=== PATIENT | female | born 1950 | race Caucasian/White ===

== ENCOUNTER 2016-05-02 13:42 | Emergency (ER) | payer OTHER, MEDICARE ==
[2016-05-02 14:09] VITALS: BP 133/79; PULSE 86; RESP 16; TEMP 98.1; O2SAT 99
--- NOTE | 2016-05-02 14:26 | EDPHY ---
H & P Stated Complaint: Mechanical tripped, R 5th TOE deformity. Time Seen by Provider: 05/02/16 14:15 HPI/ROS: CHIEF COMPLAINT: Toe injury HISTORY OF PRESENT ILLNESS: The patient is a 65-year-old female who comes to the emergency department complaining of right little toe pain. She states that she stubbed it against the threshold of the shower getting out of the shower. This happened just prior to arrival. She denies other injuries. REVIEW OF SYSTEMS: Constitutional: denies: chills, fever, recent illness, recent injury EENTM: denies: blurred vision, double vision, nose congestion Respiratory: denies: cough, shortness of breath Cardiac: denies: chest pain, irregular heart rate, lightheadedness, palpitations Gastrointestinal/Abdominal: denies: abdominal pain, diarrhea, nausea, vomiting, blood streaked stools Genitourinary: denies: dysuria, frequency, hematuria, pain Musculoskeletal: See HPI Skin: denies: lesions, rash, jaundice, bruising Neurological: denies: headache, numbness, paresthesia, tingling, dizziness, weakness Hematologic/Lymphatic: denies: blood clots, easy bleeding, easy bruising Immunologic/allergic: denies: HIV/AIDS, transplant EXAM: GENERAL: Well-appearing, well-nourished and in no acute distress. HEAD: Atraumatic, normocephalic. EYES: Pupils equal round and reactive to light, extraocular movements intact, sclera anicteric, conjunctiva are normal. ENT: TMs normal, nares patent, oropharynx clear without exudates. Moist mucous membranes. NECK: Normal range of motion, supple without lymphadenopathy or JVD. LUNGS: Breath sounds clear to auscultation bilaterally and equal. No wheezes rales or rhonchi. HEART: Regular rate and rhythm without murmurs, rubs or gallops. ABDOMEN: Soft, nontender, normoactive bowel sounds. No guarding, no rebound. No masses appreciated. BACK: No CVA tenderness, no spinal tenderness, step-offs or deformities EXTREMITIES: Right small toe with deformity angulated laterally. No clubbing or cyanosis. NEUROLOGICAL: Cranial nerves II through XII grossly intact. Normal speech, normal gait. 5/5 strength, normal movement in all extremities, normal sensation PSYCH: Normal mood, normal affect. SKIN: Warm, dry, normal turgor, no visible rashes or lesions. Source: Patient Exam Limitations: No limitations - Personal History Current Tetanus/Diphtheria Vaccine: Unsure Current Tetanus Diphtheria and Acellular Pertussis (TDAP): Unsure - Medical/Surgical History Hx Asthma: No Hx Chronic Respiratory Disease: No Hx Diabetes: No Hx Cardiac Disease: No Hx Renal Disease: No Hx Cirrhosis: No Hx Alcoholism: No Hx HIV/AIDS: No Hx Splenectomy or Spleen Trauma: No Other PMH: Cholesterol, spironolactone for alopecia. - Family History Significant Family History: Hypertension - Social History Smoking Status: Never smoked Alcohol Use: Sober Drug Use: None Constitutional: Initial Vital Signs Temperature (C) 36.7 C 05/02/16 14:04 Heart Rate 86 05/02/16 14:04 Respiratory Rate 16 05/02/16 14:04 Blood Pressure 133/79 H 05/02/16 14:04 O2 Sat (%) 99 05/02/16 14:04 O2 Delivery Mode Room Air Allergies/Adverse Reactions: codeine Allergy (Intermediate, Verified 05/02/16 14:09) Vomiting Home Medications: Medication Instructions Recorded NK [No Known Home Meds] 05/02/16 Medical Decision Making - Diagnostics Imaging: X-ray: Toe x-ray was obtained. I viewed the images myself on the PACS system. My interpretation of the images is: Positive for midshaft phalanx fracture of small toe. The radiologist interpretation is pending. Procedures: Fracture reduction and splinting: Patient's small toe was numbed with BPV cane in a digital block. I was then reduced with traction and splinted with ema- tape. Patient tolerated the procedure well. ED Course/Re-evaluation: Patient tolerated the procedure well. She is satisfied. I will discharge her to follow up with Orthopedics. This will likely heal without surgery. Differential Diagnosis: Partial list of the Differential diagnosis considered include but were not limited to; dislocation, fracture and although unlikely based on the history and physical exam, I also considered nerve injury, vascular injury, open fracture. I discussed these differential diagnoses and the plan with the patient as well as the usual and expected course. The patient understands that the diagnosis is provisional and that in medicine we are not always correct and that further workup is often warranted. Usual and customary warnings were given. All of the patient's questions were answered. The patient was instructed to return to the emergency department should the symptoms at all worsen or return, otherwise to followup with the physician as we discussed. Departure - Departure Disposition: Home, Routine, Self-Care Clinical Impression: Toe fracture, right Qualifiers: Encounter type: initial encounter Toe: lesser toe Fracture type: closed Phalanx : middle Fracture alignment: displaced Qualified Code(s): S92.521A - Displaced fracture of medial phalanx of right lesser toe(s), initial encounter for closed fracture Condition: Fair Instructions: Toe Fracture (ED) Referrals: Denia Fontaine MD [Primary Care Provider] - As per Instructions
== END 2016-05-02 15:02 | disposition home or self-care (01) ==
DX: S92.512A Displaced fracture of proximal phalanx of left lesser toe(s), initial encounter for closed fracture (principal); W18.40XA Slipping, tripping and stumbling without falling, unspecified, initial encounter

== ENCOUNTER → 2016-06-04 | Outpatient (CLI) | payer OTHER, MEDICARE | LOC: BMCIMAGING 12:26 | PROVIDERS: ATTEND Podiatrist Foot & Ankle Surgery | DX: S92.511D Displaced fracture of proximal phalanx of right lesser toe(s), subsequent encounter for fracture with routine healing (principal) ==

== ENCOUNTER → 2016-07-02 | Outpatient (CLI) | payer OTHER, MEDICARE | LOC: BMCIMAGING 12:53 | PROVIDERS: ATTEND Podiatrist Foot & Ankle Surgery | DX: S92.501D Displaced unspecified fracture of right lesser toe(s), subsequent encounter for fracture with routine healing (principal) ==

== ENCOUNTER → 2016-07-15 | Outpatient (CLI) | payer OTHER, MEDICARE | LOC: FIMAGING 12:11 | PROVIDERS: ATTEND Internal Medicine | DX: Z12.31 Encounter for screening mammogram for malignant neoplasm of breast (principal) | CPT/HCPCS: G0202 ==

== ENCOUNTER → 2016-10-02 | Outpatient (CLI) | payer OTHER, MEDICARE | LOC: FIMAGING 13:01 | PROVIDERS: ATTEND Obstetrics & Gynecology | DX: Z13.89 Encounter for screening for other disorder (principal) ==

== ENCOUNTER → 2017-03-12 | Outpatient (CLI) | payer OTHER, MEDICARE | LOC: BMCIMAGING 11:41 | PROVIDERS: ATTEND Podiatrist Foot & Ankle Surgery | DX: S99.921A Unspecified injury of right foot, initial encounter (principal) ==

== ENCOUNTER → 2017-07-21 | Outpatient (CLI) | payer OTHER, MEDICARE | LOC: FIMAGING 12:58 | PROVIDERS: ATTEND Obstetrics & Gynecology | DX: Z12.31 Encounter for screening mammogram for malignant neoplasm of breast (principal) ==

== ENCOUNTER → 2017-08-11 | Outpatient (CLI) | payer OTHER, MEDICARE | LOC: FIMAGING 12:23 | PROVIDERS: ATTEND Obstetrics & Gynecology | DX: R92.8 Other abnormal and inconclusive findings on diagnostic imaging of breast (principal) ==